=== PATIENT | female | born 1995 | race Caucasian/White ===

== ENCOUNTER 2016-11-26 20:54 | Emergency (ER) | payer MEDICAID ==
[~2016-11-26] VITALS: Ht 167.6 cm; Wt 57.0 kg
[2016-11-26 22:18] VITALS: BP 123/72
== END 2016-11-26 23:25 | disposition home or self-care (01) ==
LOC: ER 22:26
DX: M79.645 Pain in left finger(s) (principal); R07.89 Other chest pain
CPT/HCPCS: 71010; 73130; 99284; Z7610